=== PATIENT | female | born 1995 | race Caucasian/White ===

== ENCOUNTER 2017-06-30 07:16 | Emergency (ER) | payer MEDICARE, OTHER ==
[~2017-06-30] VITALS: Ht 154.9 cm; Wt 54.5 kg
[2017-06-30] MEDS ORDERED: LEVO112T4 PO (07:25)
[2017-06-30] MEDS ORDERED: AMYL1CAP63 PO (07:25)
[2017-06-30] MEDS ORDERED: AZIT250T6 PO (07:25)
[2017-06-30] MEDS ORDERED: PredniSONE 20 MG TABLET PO ONE (08:30)
[2017-06-30 08:39] VITALS: BP 120/64
== END 2017-06-30 08:41 | disposition home or self-care (01) ==
LOC: EMS 07:18
DX: T63.511A Toxic effect of contact with stingray, accidental (unintentional), initial encounter (principal); T78.40XA Allergy, unspecified, initial encounter; E03.9 Hypothyroidism, unspecified; E84.9 Cystic fibrosis, unspecified; Y92.89 Other specified places as the place of occurrence of the external cause; Z91.09 Other allergy status, other than to drugs and biological substances
CPT/HCPCS: 99283; J7512